=== PATIENT | female | born 1975 | race Caucasian/White ===

== ENCOUNTER 2016-08-14 09:16 | Emergency (ER) | payer OTHER ==
[~2016-08-14] VITALS: Wt 69.0 kg
[~2016-08-14 09:16] MED LIST: BACTDS PO; CALC500T12 PO; FAMO-18 PO; FER325 PO; LORA10CA PO; METF500T4 PO
[2016-08-14] MEDS ORDERED: IBUPROFEN 600 MG TAB PO ONE (10:30)
[2016-08-14] MEDS ORDERED: ONDANSETRON 4 MG TAB PO ONE (10:30)
[2016-08-14] MEDS ORDERED: ONDANSETRON (ODT) 4 MG TAB ODT STA (10:37)
[2016-08-14] MEDS ORDERED: BENZ100C70 PO (10:40)
[2016-08-14] MEDS ORDERED: ONDA4TAB8 PO (10:40)
[2016-08-14] MEDS ORDERED: IBUP-1542 PO (10:40)
--- NOTE | 2016-08-14 15:31 | ERD ---
ER Documentation Chief Complaint Date/Time DATE: 08/14/16 TIME: 15:27 Chief Complaint COUGH AND SORE THROAT FOR THE PAST 2 DAYS. NO DISTRESS HPI This is a 40-year-old female complaining of fever, chills, sore throat, productive cough, nausea and nasal congestion 1 day. Patient reports of having a 101.2 fever at home. Denies any sick contacts. Denies smoking or exposure to secondhand smoke. Patient denies chest pain, shortness of breath, headache, diarrhea, dysuria, constipation, abdominal pain, anorexia or dysphagia. ROS All systems reviewed and are negative except as per history of present illness. Medications Home Meds Active Scripts Benzonatate* (Tessalon Perle*) 100 Mg Capsule, 100 MG PO Q8H Y for COUGH, #14 CAP Prov:AKILAH REINOSO 08/14/16 Ondansetron Hcl* (Zofran*) 4 Mg Tablet, 4 MG PO Q8H Y for NAUSEA AND/OR VOMITING , #10 TAB Prov:AKILAH REINOSO 08/14/16 Ibuprofen* (Motrin*) 600 Mg Tab, 600 MG PO Q6H Y for PAIN AND OR ELEVATED TEMP, #30 TAB Prov:AKILAH REINOSO 08/14/16 Famotidine* (Pepcid*) 20 Mg Tablet, 20 MG PO BID, #60 TAB Prov:JESUS ALBERTO TAVERAS [facility] INTER[facility] 03/14/16 Sulfamethoxazole-Trimethoprim* (Bactrim* DS) 800-160 Mg Tab, 1 TAB PO BID, #20 TAB Prov:JESUS ALBERTO TAVERAS [facility]. [facility] INTERN 03/14/16 Reported Medications Loratadine* (Claritin*) 10 Mg Capsule, 10 MG PO DAILY, CAP 03/12/16 Ferrous Sulfate* (Ferrous Sulfate*) 325 Mg Tabec, 325 MG PO DAILY, TAB 11/13/15 Calcium Carbonate* (Oysco-500*) 1 Tab Tablet, 1 TAB PO BID, TAB 11/13/15 Metformin* (Glucophage*) 500 Mg Tab, 500 MG PO WITH MEALS, #90 TAB 11/13/15 Allergies Allergies: Coded Allergies: No Known Allergy (Unverified , 03/12/16) PMhx/Soc History of Surgery: Yes (c section x 2003) Anesthesia Reaction: No Hx Neurological Disorder: No Hx Respiratory Disorders: No Hx Cardiac Disorders: No Hx Psychiatric Problems: No Hx Miscellaneous Medical Probl: No Hx Alcohol Use: No Hx Substance Use: No Hx Tobacco Use: No Smoking Status: Never smoker Physical Exam Vitals Vital Signs Date Time Temp Pulse Resp B/P Pulse Ox O2 Delivery O2 Flow Rate FiO2 08/14/16 09:19 98.9 69 21 155/74 96 Physical Exam Physical Exam CONST: Well-developed, well-nourished, in no acute distress. HEENT: Atraumatic. Normal Conjunctiva. EOM intact. TM intact. External ear is normal. Erythematous nasal turbinates. Clear oropharnyx without erythema. Moist mucous membranes. Supple. Full range of motion. No meningismus. No submandibular induration. RESP: Clear to auscultation bilaterally. No wheezing. CARDIO: Regular rate and rhythm, no murmurs ABD: Soft, non tender, non distended. Normal bowel sounds. No McBurney's point tenderness. No guarding or rigidity. No peritoneal signs. SKIN: No petechiae or rashes BACK: No midline or flank tenderness EXT: No cyanosis or edema. Distal pulses equal and bilateral NEURO: Awake and alert, appropriate for age Results 24 hrs Current Medications Medications (Trade) Dose Ordered Sig/Delia Route PRN Reason Start Time Stop Time Status Last Admin Dose Admin Ondansetron HCl (Zofran Tab) 4 mg ONCE ONCE PO 08/14/16 10:30 08/14/16 10:39 DC Ibuprofen (Motrin) 600 mg ONCE ONCE PO 08/14/16 10:30 08/14/16 10:39 DC 08/14/16 10:36 Ondansetron HCl (Zofran Odt) 4 mg ONCE STAT ODT 08/14/16 10:37 08/14/16 10:39 DC 08/14/16 10:40 Procedures/MDM EMERGENCY DEPARTMENT COURSE/MEDICAL DECISION MAKING This is a 40-year-old [] who comes to the emergency room secondary to complaints of fever, chills, nausea, sore throat, productive cough, nasal congestion for 1 day. Patient is currently afebrile at this time. The patient was given Zofran and ibuprofen in the department. On re-evaluation, the patient was feeling improved. My primary diagnosis is upper respiratory infection. Secondary diagnosis are cough and sore throat Differential diagnoses considered, included but not limited to otitis media, influenza, pneumonia, pharyngitis, tonsillitis, croup, HI, dental abscess. I have discussed the lab results and diagnostic findings with the patient and answered any questions or concerns. The patient was discharged for outpatient management with a prescription for ibuprofen, Zofran and Tessalon. The patient was advised to followup with their PMD in 1-2 days and to return to the Emergency Department if there are any new or worsening symptoms. The patient understood and agreed with the diagnosis, treatment and plan. The patient is stable for discharge at this time. Departure Diagnosis: Primary Impression: Upper respiratory infection, viral Additional Impressions: Cough Sore throat (viral) Condition: Good Patient Instructions: Uri, Viral, No Abx (Adult) Additional Instructions: Follow-up with your primary care physician in 1-2 days. Return to the emergency department immediately should you have any new or worsening symptoms, uncontrolled fevers, or other unexplained symptoms. Take all medications as directed. AKILAH REINOSO Aug 14, 2016 15:31
== END 2016-08-14 10:50 | disposition home or self-care (01) ==
LOC: FTE 09:16
DX: J06.9 Acute upper respiratory infection, unspecified (principal); R05 Cough; J02.9 Acute pharyngitis, unspecified; E11.9 Type 2 diabetes mellitus without complications; R11.0 Nausea; Z79.84 Long term (current) use of oral hypoglycemic drugs
CPT/HCPCS: Z7502; Z7610; 99284

== ENCOUNTER 2017-04-23 10:44 | Emergency (ER) | payer OTHER ==
[~2017-04-23] VITALS: Ht 152.4 cm; Wt 69.0 kg
[~2017-04-23 10:44] MED LIST changes: +BENZ100C70 PO; -FAMO-18 PO; +FAMO-96 PO; +IBUP-1542 PO; +ONDA4TAB8 PO
[2017-04-23 10:55] VITALS: Ht 152.4 cm; Wt 69.0 kg
[2017-04-23] MEDS ORDERED: GUAI-106 PO (11:39)
[2017-04-23] MEDS ORDERED: AZIT250T94 PO (11:39)
[2017-04-23] MEDS ORDERED: IBUP-1542 PO (11:39)
--- NOTE | 2017-04-23 11:45 | ERD ---
ER Documentation Chief Complaint Chief Complaint cold x 5 days HPI This 41-year-old female presents with congestion and cough and frontal headache for the last 5 days. She may have had tactile fevers but no measured temperature. She denies any shortness breath, chest pain, vomiting, abdominal pain. ROS All systems reviewed and are negative except as per history of present illness. Medications Home Meds Active Scripts Guaifenesin/Pseudoephedrne HCl (Mucinex D ER 1,200-120 mg Tab) 1 Each Tab.er.12h , 1 EACH PO BID, #14 TAB Prov:OBIE BIANCHI MD 04/23/17 Ibuprofen* (Motrin*) 600 Mg Tab, 600 MG PO Q6, #15 TAB Prov:OBIE BIANCHI MD 04/23/17 Azithromycin* (Zithromax*) 250 Mg Tablet, 250 MG PO .ZPACK DIRECTED, #6 TAB TAKE 500 MG (2 TABS) THE FIRST DAY THEN 250 MG (1 TAB) DAYS 2-5 Prov:OBIE BIANCHI MD 04/23/17 Reported Medications Metformin Hcl* (Metformin Hcl*) 500 Mg Tablet, 500 MG PO WITH BREAKFAST DINNE, # 60 TAB 02/18/16 Allergies Allergies: Coded Allergies: No Known Allergy (Unverified , 02/18/16) PMhx/Soc History of Surgery: Yes (CSECTION,APPENDECTOMY) Anesthesia Reaction: No Hx Neurological Disorder: No Hx Respiratory Disorders: No Hx Cardiac Disorders: No Hx Psychiatric Problems: No Hx Miscellaneous Medical Probl: No Hx Alcohol Use: No Hx Substance Use: No Hx Tobacco Use: No Physical Exam Vitals Vital Signs Date Time Temp Pulse Resp B/P Pulse Ox O2 Delivery O2 Flow Rate FiO2 04/23/17 10:55 98.4 87 18 148/93 97 Physical Exam Const: [] Alert, [id number]. Head: Atraumatic Eyes: Normal Conjunctiva ENT: Normal External Ears, Nose and Mouth. It was normal. 3+ nasal congestion. Tenderness in the maxillary sinus area. Postnasal drip. Neck: Full range of motion..~ No meningismus. Resp: Clear to auscultation bilaterally Cardio: Regular rate and rhythm, no murmurs Abd: Soft, non tender, non distended. Normal bowel sounds Skin: No petechiae or rashes Back: No midline or flank tenderness Ext: No cyanosis, or edema Neur: Awake and alert Psych: Normal Mood and Affect Procedures/MDM Presents with URI symptoms and signs of possible sinusitis without evidence of hypoxemia, respiratory distress, sepsis or meningitis. She will be treated with Zithromax, Mucinex DM and ibuprofen, further observation at home and return precautions and primary care follow-up. Departure Diagnosis: Primary Impression: Sinusitis Sinusitis location: frontal Chronicity: acute Recurrence: non-recurrent Qualified Code: J01.10 - Acute non-recurrent frontal sinusitis Additional Impression: Upper respiratory infection URI type: unspecified URI Qualified Code: J06.9 - Upper respiratory tract infection, unspecified type Condition: Stable Patient Instructions: Sinusitis, Abx Tx Additional Instructions: Recheck for new or worsening symptoms with primary care doctor. OBIE BIANCHI MD Apr 23, 2017 11:45
== END 2017-04-23 12:05 | disposition home or self-care (01) ==
LOC: FTE 10:44 → MERGE 10:44 → FTE 12:05
DX: J01.10 Acute frontal sinusitis, unspecified (principal); J06.9 Acute upper respiratory infection, unspecified; Z79.84 Long term (current) use of oral hypoglycemic drugs
CPT/HCPCS: 99283